=== PATIENT | male | born 1980 | race Two or more races ===

== ENCOUNTER 2024-09-10 00:52 | Emergency (ER) | payer OTHER ==
[~2024-09-10] VITALS: Ht 185.4 cm; Wt 81.0 kg
[2024-09-10 02:10] VITALS: BP 128/74; PULSE 76; RESP 15; TEMP 97.7; O2SAT 100
--- NOTE | 2024-09-10 02:20 | DVH ---
CLINICAL INDICATION: pain TECHNIQUE: XY L HAND 3V XRAY Comparison: None FINDINGS/IMPRESSION: : There is no evidence of acute fracture or dislocation. Minor flexion deformity of the 5th distal interphalangeal joint noted. Soft tissues are unremarkable.
--- NOTE | 2024-09-10 02:42 | ED.PDOC ---
[place]. trauma (HPI) HPI Comments HOMELESS SCHIZOPHRENIC PATIENT PRESENTS TO ED FOR CC OF L HAND PAIN X 3 MONTHS. REPORTS PAIN STARTED AFTER PHYSICAL ALTERCATION. DENIES NUMBNESS OR WEAKNESS OR ANY OTHER KNOWN INJURY. Chief Complaint: Upper Extremity Time Seen by MD: 01:14 Reviewed notes: Nurses Notes, Medications, Allergies Allergies: Coded Allergies: NO KNOWN ALLERGIES (Unverified , 09/10/24) Mode of Arrival: EMS Past Medical History PAST MEDICAL HISTORY: Denies Surgical History: Denies all surgeries Family History Family History: Unknown Social History Smoker: Non-Smoker Alcohol: Denies ETOH Use Drugs: Denies Drug Use Constitutional: denies: chills, diaphoresis, fatigue, fever, malaise, sweats, weakness, others EENTM: denies: blurred vision, double vision, ear bleeding, ear discharge, ear drainage, ear pain, ear ringing, eye pain, eye redness, hearing loss, mouth pain, mouth swelling, nasal discharge, nose bleeding, nose congestion, nose pain, photophobia, tearing, throat pain, throat swelling, voice changes, others Respiratory: denies: cough, hemoptysis, orthopnea, SOB at rest, shortness of breath, SOB with excertion, stridor, wheezing, others Cardiovascular: denies: chest pain, dizzy spells, diaphoresis, Dyspnea on exertion, edema, irregular heart beat, left arm pain, lightheadedness, palpitations, PND, syncope, others Gastrointestinal: denies: abdomen distended, abdominal pain, blood streaked bowels, constipated, diarrhea, dysphagia, difficulty swallowing, hematemesis, melena, nausea, poor appetite, poor fluid intake, rectal bleeding, rectal pain, vomiting, others Physical Exam General Appearance: No Apparent Distress, Normal HEENT: Pharynx Normal Neck: Full Range of Motion, Non-Tender Respiratory: Lungs Clear, No Respiratory Distress, Normal Breath Sounds Cardiovascular: No Edema, No JVD, No Murmur, No Gallop, Normal Peripheral Pulses, Regular Rate/Rhythm Breast Exam: Deferred Gastrointestinal: No Organomegaly, Non Tender, No Pulsatile Mass, Normal Bowel Sounds, Soft Genitalia: Deferred Pelvic: Deferred Rectal: Deferred Extremities: Normal capillary refill, Normal inspection, Normal range of [place] on, Non-tender, No pedal edema Musculoskeletal : Location: Left Extremity Location: Hand (TENDERNESS PALPATED OVER 2ND DIGIT KNUCKLE TRACE EDEMA NO NOTED ABRASIONS LESIONS OR LACERATIONS STRENGTH SENSORY AND MOTION INTACT) Apperance: Normal Neurologic: Alert, fire marshal II-XII nml as Tested, No Motor Deficits, Normal Affect, Normal Mood, No Sensory Deficits Cerebellar Function: Normal Reflexes: Normal Skin: Dry, Normal Color, Warm Lymphatic: No Adenopathy Was a procedure done? Was a procedure done?: No Differential Diagnosis Multiple Trauma: Fractures, Vascular Injury X-Ray, Labs, Meds, VS Vital Signs Date Time Temp Pulse Resp B/P (MAP) Pulse Ox O2 Delivery O2 Flow Rate FiO2 09/10/24 02:10 76 15 100 Room Air 09/10/24 02:10 97.7 76 15 128/74 (92) 100 97.7 09/10/24 00:52 97.7 76 15 128/74 (92) 100 97.7 Current Medications Medications (Trade) Dose Ordered Sig/Luma Route Start Time Stop Time Status Last Admin Ibuprofen (Motrin Tablet) 800 mg ONCE ONCE PO 09/10/24 02:45 09/10/24 02:46 DC 09/10/24 02:53 X-Ray, Labs, Meds, VS Comment X-RAY LEFT HAND SHOWS NO ACUTE FRACTURES OSSEOUS LESIONS DOES SHOW LAB DISTAL PHALANX OF 5TH DIGIT MILDLY DISPLACED HOWEVER PATIENT STATES IT IS AN OLD INJURY. ADVISED PATIENT TO FOLLOW UP WITH HIS PCP CONSIDER AN MRI IF SYMPTOMS PERSIST. [id number] TYLENOL OR MOTRIN NEEDED FOR THE PAIN PER LABELED DOSING INSTRUCTIONS. ER RETURN PRECAUTIONS GIVEN PATIENT INDICATES UNDERSTANDING AGREES WITH DISCHARGE PLAN OF CARE. Time of 1ST Reevaluation: 02:35 Reevaluation 1ST: Improved Patient Education/Counseling: Diagnosis, Treatment, Prognosis, Need For Follow Up Family Education/Counseling: No Family Present Departure 1 Departure Time of Disposition: 02:41 Impression: Primary Impression: Hand contusion Qualified Codes: S60.222A - Contusion of left hand, initial encounter Disposition: HOME / SELF CARE / HOMELESS Condition: Stable Discharged With: Self Critical Care Note Critical Care Time?: No Stability Stability form required: CARMEN Caban Sep 10, 2024 02:42
[2024-09-10] MEDS: IBUPROFEN 800 MG TAB PO ONE (02:53)
== END 2024-09-10 02:55 | disposition home or self-care (01) ==
LOC: EDBD 00:52 → ER 00:52
DX: S60.222A Contusion of left hand, initial encounter (principal); F20.9 Schizophrenia, unspecified; Z59.00 Homelessness unspecified; Y04.8XXA Assault by other bodily force, initial encounter; Y93.89 Activity, other specified; Y92.89 Other specified places as the place of occurrence of the external cause; Y99.8 Other external cause status
CPT/HCPCS: 73130